=== PATIENT | female | born 1995 | race African-American/Black ===

== ENCOUNTER 2021-01-23 07:05 | Emergency (ER) | payer OTHER, SELFPAY ==
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
[2021-01-23 07:28] VITALS: BP 116/82; PULSE 75; RESP 20; TEMP 36.6; O2SAT 100
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
[2021-01-23] MEDS: IBUPROFEN 400 MG TABLET 800 MG PO (08:09)
[2021-01-23 08:52] VITALS: BP 124/78; PULSE 87; RESP 20; O2SAT 100
== END 2021-01-23 09:02 | disposition home or self-care (01) ==
PROVIDERS: Emergency Provider Emergency Medicine
DX: S20.219A Contusion of unspecified front wall of thorax, initial encounter (principal); V89.2XXA Person injured in unspecified motor-vehicle accident, traffic, initial encounter
CPT/HCPCS: 71250; 99283; 99284; A9270